=== PATIENT | female | born 1940 | race Caucasian/White ===

== ENCOUNTER → 2016-05-05 | Outpatient (CLI) | payer MEDICARE, OTHER ==
[~2016-05-05] MED LIST: ESOM20CA PO; LISI1TAB10 PO
--- NOTE | 2016-05-05 13:28 | Diagnostic Imaging Report ---
INDICATION: Postmenopausal, screening for osteoporosis. COMPARISON: 01/12/2012. DISCUSSION: Bone mineral density measurements of the lumbar spine and bilateral hips were performed on a [employer] DEXA scanner. Bone mineral density of the lumbar spine measures 1.458 g per centimeter squared which correlates to a T score of 2.2, normal. Bone mineral density of the right hip measures 1.124 g per centimeter squared which correlates to a T score of 1.0, normal. Bone mineral density of the left hip measures 1.078 g per centimeter squared which correlates to a T score of 0.7, normal. This scan is considered normal according to World Health Organization guidelines. Please refer to the detailed Bone Density report faxed separately from this report. IMPRESSION: 1. Normal bone mineralization. 2. No statistically significant interval change within the bone mineral density measurements of the lumbar spine or bilateral hips. Dictated by: Dictated on workstation # [id number]
--- NOTE | 2016-05-06 09:38 | Diagnostic Imaging Report ---
INDICATION: Screening mammogram. COMPARISON: 08/03/2013. TECHNIQUE: Digital screening mammography was obtained with CAD. FINDINGS: Scattered fibroglandular densities are present. There is no mass or suspicious calcification. There is a biopsy marker clip in the left breast. IMPRESSION: Stable screening mammogram. No malignancy. ACR BI-RADS Category 1: Negative. Result letter will be mailed to the patient. Note: At least 10% of breast cancer is not imaged by mammography. Dictated by: Dictated on workstation # [id number]
== END ==
LOC: RAD 09:35
PROVIDERS: ATTEND Internal Medicine
DX: Z12.31 Encounter for screening mammogram for malignant neoplasm of breast (principal); Z78.0 Asymptomatic menopausal state
CPT/HCPCS: 77080; G0202

== ENCOUNTER → 2016-08-17 | Outpatient (CLI) | payer MEDICARE, OTHER ==
[2016-08-17 10:46] LABS: BASOPHILS % (AUTO) 0 % (0-2); EOSINOPHILS # (AUTO) 0.4 10^3uL; EOSINOPHILS % (AUTO) 5 % (0-4); MEAN CORPUSCULAR VOLUME 82 FL (80-100); MEAN PLATELET VOLUME 10.5 FL (6.0-9.5); MONOCYTES # (AUTO) 0.5 X10^3; MONOCYTES % (AUTO) 7 % (3-11); NEUTROPHILS # (AUTO) 4.4 X10^3; NEUTROPHILS % (AUTO) 60 % (51-67); PLATELET COUNT 271 10^3uL (150-450); WHITE BLOOD COUNT 7.26 10^3uL (4.0-11.0)
[2016-08-17 10:47] LABS: MEAN CORPUSCULAR HGB CONC 31.6 g/dL (31.0-37.0)
[2016-08-17 11:04] LABS: ANION GAP 12.5 MEQ/L (3-15); CALCULATED IONIZED CALCIUM 4.4 mg/dL (3.8-4.6); TOTAL PROTEIN 6.8 g/dL (6.4-8.5)
--- NOTE | 2016-08-17 11:15 | Diagnostic Imaging Report ---
INDICATION: Preoperative testing. Scheduled for knee scope. EXAMINATION: Two-view chest 08/17/2016 COMPARISON: 01/29/2015 FINDINGS: There is linear atelectasis or scar at the left lung base. The remaining lungs appear to be clear. Heart and pulmonary vasculature appear stable from previous. IMPRESSION: 1. No acute process Dictated by: Dictated on workstation # [id number]
[2016-08-17 11:26] LABS: BILIRUBIN,URINE Negative (Negative); CLARITY,URINE Clear; COLOR,URINE Yellow; GLUCOSE, URINE (UA) Negative (Negative); LEUKOCYTE ESTERASE ,URINE Trace (Negative); PH,URINE 5.5 (5.0 - 8.0); UROBILINOGEN,URINE 0.2 mg/dL (0.2-1.0)
[2016-08-17 11:33] LABS: RBC,URINE 0-2 /HPF; URINE CENTRIFUGED VOLUME 12 mL
== END ==
LOC: LAB 10:23
PROVIDERS: ATTEND Internal Medicine
DX: Z01.818 Encounter for other preprocedural examination (principal); I10 Essential (primary) hypertension; R73.09 Other abnormal glucose; R82.99 Other abnormal findings in urine
CPT/HCPCS: 36415; 71020; 80053; 81003; 81015; 83036; 85025; 85610; 85730; 87088

== ENCOUNTER 2016-09-18 13:45 | Outpatient (RCR) | payer MEDICARE, OTHER ==
--- NOTE | 2016-09-19 07:41 | PT/OT/ST INITIAL EVALUATION ---
Department of Health and Human Services Form Approved [facility] Care Financing Administration OMB No. [id number] PLAN OF CARE/ASSESSMENT FOR OUTPATIENT REHABILITATION (Complete for Initial Claims Only) 1. PATIENT'S NAME Jacklyn Ivy 2. ACC # [id number] [id number] 4. PROVIDER NO. [id number] 5. TYPE: PT 6. PRIOR HOSPITALIZATION Post left TKA on 09/01/2016 for 2 days 7. PRIMARY DX Left revised total knee arthroplasty 8. SECONDARY DX Left knee pain, left knee stiffness, difficulty walking, and weakness 9. ONSET DATE Current surgery 09/01/2016 initial having troubles with original total knee arthroplasty on 07/23/2015 10. REFERRAL DATE 09/02/2016 11. SOC. DATE 09/09/2016 12. TIME OF EVAL 2:08 p.m. to 2:59 p.m. 12. REFERRING PHYSICIAN Jesus Alberto Pearl MD 13. CHARGES/UNITS PT evaluation low complexity 22245 1 unit therapeutic exercise 13883 1 unit manual Therapy 89746 1 unit Vasopneumatic device 73524 14. G CODES Lower extremity functional scale rated the patient [id number] 76.3% limited and the goal is [id number] less than or equal to 5% limited in order to continue to ambulating without assisted device without deviation and to be able to care for her without deviation. 15. PRIOR LEVEL OF FUNCTION; PERTINENT HISTORY (Prior therapy results, reason for referral.) S: Reason for referral: Prior to therapy the patient consented to today's evaluation and treatment. The patient is a 76-year-old female referred to physical therapy by Dr. Jesus Alberto Pearl to address functional limitations secondary to a left revised total knee arthroplasty performed on 09/01/2016. Occupational and social health history: The patient is retired. Description/mechanism of injury: The patient reports that she initially had a left knee replacement on 07/23/2015 and she had difficulty with the rehabilitation afterwards and led to a manipulation. The patient's range of motion improved at that time however she continued to have pain and had a procedure to nerves in her left knee which still did not help and finally led to a left revision total knee arthroplasty on 09/01/2016. She spent 2 days in the hospital after that. Primary Complaint: Left knee pain, left knee stiffness. 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 The patient did struggle with pain prior to the current surgery. Pain level: The patient rates the current pain level 6/10 at worst. The patient describes the pain as an achy pain. She does have some burning but better prior to surgery. Obstacles to delivery of care: None noted. Aggravating factors: Include activity. Relieving factors: Rest. Diagnostic testing: None noted. Past medical history: Includes osteoarthritis, high blood pressure which is controlled, and environmental allergies. Past surgical history: Includes having left knee replacement, gallbladder surgery, tonsillectomy, and hysterectomy. Current medications: Include Aleve, Naproxen, antihistamines, decongestants, aspirin, and lisinopril. The patient states that she is on a pain medication but does not remember the name and a blood thinner for 2 weeks. Leisure activities: Include bus trips to the [employer]. Activity Level: Listed as not much Personal health rating: Good. Patient's Goal: The patient's goal for physical therapy includes getting around without pain. 16. INITIAL ASSESSMENT/SAFETY PRECAUTIONS/MEDICAL COMPLICATIONS (Level of function at start of care. Be specific, use objective measures, list problems.) O: APPEARANCE, OBSERVATION AND GAIT: The patient lives in a home with her . She does help take care of him due to him having a previous stroke. She states that she does not lift him anymore. Two steps into the house with bars. The patient is ambulating with a four wheeled walker and the patient has an Aquacel bandage that is intact on her left knee. No signs or symptoms of infection. No signs or symptoms of a blood clot. PALPATION: No significant tenderness to palpation noted. SPECIAL TESTS: Bilateral Homans of the lower extremity negative. RANGE OF MOTION/FLEXIBILITY: Active range of motion of the knees: Right knee extension -1 degree, flexion 132 degrees, left knee extension -2 degrees, flexion 83 degrees. STRENGTH: No performing of manual muscle testing was performed due to surgery. Upon observation the patient would be a 3-/5. TODAY'S TREATMENT: Today's treatment included initial PT evaluation followed by therapeutic exercise, and manual therapy. Including passive range of motion of the left knee in flexion and extension followed by Vasopneumatic device. The patient was given a home exercise program. 17. 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 The patient shows functional limitations of left knee pain, left knee stiffness, difficulty walking, and weakness. The patient will benefit from physical therapy in order to restore proper mechanics and strengthening of lower extremity muscles in order to ambulate without an assisted device safely and to restore proprioception and strength in order to ascend and descend steps and to help take care of her without deviation. PROGNOSIS: The patient has a good prognosis for increased overall functional capacity with regular therapy attendance, compliance with prescribed home exercise program. CONTRAINDICATIONS, PRECAUTIONS AND OBSTACLES TO DELIVERY OF CARE: No significant contraindications, precautions, or obstacles are noted at this time. INFORMED CONSENT: The prognosis and goals were discussed with the patient as well as the expected outcome and possible risks. The patient agreed to undergo PT evaluation and further treatment. SHORT TERM GOALS: 1. The patient is to have a decrease in pain at the left knee to less than or equal to 2/10 in 8 weeks with activity to ambulate without deviation and without assisted device. 2. The patient is to have an increase in manual muscle testing of the left knee to 4+/5 and of flexion and extension in 8 weeks in order to ascend and descend steps without deviation. 3. The patient is to have an increase in active range of motion of the left knee to 0-128 degrees within 8 weeks in order to get in and out of the car and put on shoes and socks without deviation. 4. The patient is to be independent with progressive home exercise program. P: Plan to treat this patient 2 times a week for 8 weeks. Treatment to include modalities for pain and inflammation, manual therapy interventions, therapeutic exercise, active and passive range of motion, gait training, balance training, neural reeducation, and patient education and prescription of progressive home exercise program as tolerable. 18. FREQUENCY 19. DURATION 20. FUNCTIONAL LEVEL (End of claim period) 21. PHYSICIAN SIGNATURE ? ON FILE OR ENTER HERE: 22. DATE: I certify the need for these services furnished under this plan of care and if for partial hospitalization. 23. CERTIFICATION FROM THROUGH [facility]-[id number]
== END 2016-09-21 10:15 | disposition home or self-care (01) ==
LOC: PT 13:45
PROVIDERS: ATTEND Orthopaedic Surgery
DX: Z96.652 Presence of left artificial knee joint (principal)
CPT/HCPCS: 97016; 97110; 97116; 97140; 97161; G8978; G8979